=== PATIENT | male | born 1950 | race Caucasian/White ===

== ENCOUNTER 2017-08-02 11:47 | Emergency (ER) | payer MEDICARE ==
[~2017-08-02] VITALS: Ht 172.7 cm; Wt 86.2 kg
[2017-08-02] MEDS ORDERED: TETANUS/DIPHTHERIA TOX ADULT 0.5 ML SYR IM ONE (12:00)
[2017-08-02] MEDS ORDERED: LIDOCAINE HCL 1% LOCAL INJ 20 ML VIAL INJ ONE (12:15)
== END 2017-08-02 12:12 | disposition home or self-care (01) ==
LOC: ER 11:47
DX: S60.455A Superficial foreign body of left ring finger, initial encounter (principal); I10 Essential (primary) hypertension; E78.5 Hyperlipidemia, unspecified; R73.03 Prediabetes; C95.91 Leukemia, unspecified, in remission
CPT/HCPCS: 99283

== ENCOUNTER 2020-08-25 16:44 | Emergency (ER) | payer MEDICARE ==
[~2020-08-25] VITALS: Ht 172.7 cm; Wt 86.2 kg
[2020-08-25 17:21] LABS: BASOPHILS % 0.5 % (0.0-1.0); EOSINOPHILS % 0.7 % (0.0-6.0); HEMATOCRIT 45.2 % (38.2-49.6); HEMOGLOBIN 14.8 g/dL (14.0-18.0); LYMPHOCYTES % 15.8 % (18.0-39.1); MEAN CORPUSCULAR HEMOGLOBIN 28.2 pg (28-32); MEAN CORPUSCULAR HGB CONC 32.7 g/dL (31-35); MEAN CORPUSCULAR VOLUME 86.1 fL (81-99); MONOCYTES # (AUTO) 0.6 (0.2-0.8); NEUTROPHILS # (AUTO) 4.4 (2.1-6.9); NEUTROPHILS % 72.7 % (38.7-80.0); PLATELET COUNT 172 x10e3/uL (140-360); RED BLOOD COUNT 5.25 x10e6/uL (4.3-5.7); RED CELL DISTRIBUTION WIDTH 11.9 % (11.7-14.4)
[2020-08-25 17:33] LABS: INR 0.96; PROTHROMBIN TIME 13.4 seconds (11.9-14.5)
[2020-08-25 17:34] LABS: PARTIAL THROMBOPLASTIN TIME 25.9 seconds (23.8-35.5)
[2020-08-25] MEDS ORDERED: PIOGLITAZONE HC45 MG (17:34)
[2020-08-25] MEDS ORDERED: ATORVASTATIN CA10 MG (17:34)
[2020-08-25] MEDS ORDERED: OLMESARTAN MEDOX5 MG (17:34)
[2020-08-25] MEDS ORDERED: INVOKANA300 MG (17:34)
[2020-08-25] MEDS ORDERED: METFORMIN HCL1000 MG (17:34)
[2020-08-25] MEDS ORDERED: ESCITALOPRAM OX10 MG (17:34)
[2020-08-25] MEDS ORDERED: JANUVIA100 MG (17:34)
[2020-08-25 17:43] LABS: ALBUMIN 3.5 g/dL (3.5-5.0); ALBUMIN/GLOBULIN RATIO 1.1 (0.8-2.0); ANION GAP 18.1 mmol/L (8-16); CALCIUM 8.5 mg/dL (8.4-10.2); CREATININE, SERUM 1.38 mg/dL (0.72-1.25); POTASSIUM 4.1 mmol/L (3.5-5.1)
[2020-08-25 17:49] LABS: CREATINE KINASE MB 0.9 ng/mL (0-5.0)
[2020-08-25] MEDS ORDERED: CEFEPIME 1 GM in SODIUM CHLORIDE 0.9% 50ML 50 ML IV ONE (18:00)
[2020-08-25] MEDS ORDERED: ACETAMINOPHEN 325 MG TAB PO ONE (18:00)
[2020-08-25 20:14] LABS: CLARITY,URINE CLEAR (CLEAR); COLOR,URINE YELLOW (YELLOW); KETONES,URINE 1+ (NEGATIVE); LEUKOCYTE ESTERASE ,URINE NEGATIVE (NEGATIVE); NITRITE,URINE NEGATIVE (NEGATIVE); PROTEIN,URINE DIPSTICK NEGATIVE (NEGATIVE)
[2020-08-25 20:15] LABS: URINE UROBILINOGEN 0.2 mg/dL (0.2 - 1)
[2020-08-25 20:39] LABS: BACTERIA,URINE RARE /HPF; EPITHELIAL CELLS,URINE FEW /LPF; RBC,URINE 0-5 /HPF (0-5); WBC,URINE (MAN) 0-5 /HPF (0-5)
== END 2020-08-25 22:30 | disposition other institution (70) ==
LOC: ER 17:13
DX: U07.1 COVID-19 (principal); R50.9 Fever, unspecified; R55 Syncope and collapse; L02.413 Cutaneous abscess of right upper limb; R94.31 Abnormal electrocardiogram [ECG] [EKG]; E11.65 Type 2 diabetes mellitus with hyperglycemia; I10 Essential (primary) hypertension; E78.5 Hyperlipidemia, unspecified; K21.9 Gastro-esophageal reflux disease without esophagitis; C95.91 Leukemia, unspecified, in remission
CPT/HCPCS: 36415; 70450; 71045; 80053; 81001; 82550; 82553; 83605; 83735; 83880; 84484; 85025; 85610; 85730; 87040; 87086; 93005; 99284; J0692; U0002

== ENCOUNTER → 2023-09-01 | Day surgery (SDC) | payer MEDICARE ==
[2023-08-18 15:17] LABS: BASOPHILS % 0.7 % (0.0-1.0); EOSINOPHILS % 0.6 % (0.0-6.0); HEMATOCRIT 47.9 % (38.2-49.6); HEMOGLOBIN 15.5 g/dL (14.0-18.0); LYMPHOCYTES # (AUTO) 1.8 (1.0-3.2); LYMPHOCYTES % 32.5 % (18.0-39.1); MEAN CORPUSCULAR HEMOGLOBIN 27.7 pg (28-32); MEAN CORPUSCULAR HGB CONC 32.4 g/dL (31-35); MEAN CORPUSCULAR VOLUME 85.7 fL (81-99); MONOCYTES # (AUTO) 0.6 (0.2-0.8); MONOCYTES % 11.6 % (4.4-11.3); NEUTROPHILS % 54.4 % (38.7-80.0); PLATELET COUNT 182 x10e3/uL (140-360); RED BLOOD COUNT 5.59 x10e6/uL (4.3-5.7); RED CELL DISTRIBUTION WIDTH 12.3 % (11.7-14.4); WHITE BLOOD COUNT 5.45 x10e3/uL (4.8-10.8)
[~2023-09-01] MED LIST: ATORVASTATIN CA10 MG; ESCITALOPRAM OX10 MG; GLYCOPYRROLATE INJ 0.2 MG/ML VIAL ONE; INVOKANA300 MG; JANUVIA100 MG; LIDOCAINE HCL 2% LOCAL INJ 5 ML SDV VIAL INJ ONE; METFORMIN HCL1000 MG; OLMESARTAN MEDOX5 MG; PIOGLITAZONE HC45 MG; PROPOFOL IV EMULSION 10 MG/ML 20 ML VIAL ONE
[2023-09-01] MEDS: LACTATED RINGER'S 1,000 ML ONE (14:17)
[2023-09-01 16:35] VITALS: BP 141/71; PULSE 50; RESP 17; TEMP 97.3; O2SAT 98
== END | disposition home or self-care (01) ==
LOC: ENDO 13:58
PROVIDERS: ATTEND Internal Medicine Gastroenterology
DX: K20.90 Esophagitis, unspecified without bleeding (principal); K29.70 Gastritis, unspecified, without bleeding; K31.89 Other diseases of stomach and duodenum; K59.09 Other constipation; Z71.3 Dietary counseling and surveillance; C92.00 Acute myeloblastic leukemia, not having achieved remission; R00.1 Bradycardia, unspecified; I10 Essential (primary) hypertension; Z71.89 Other specified counseling; E11.9 Type 2 diabetes mellitus without complications; E78.5 Hyperlipidemia, unspecified; Z88.6 Allergy status to analgesic agent; Z01.810 Encounter for preprocedural cardiovascular examination; Z01.812 Encounter for preprocedural laboratory examination; Z79.84 Long term (current) use of oral hypoglycemic drugs; Z79.899 Other long term (current) drug therapy; Z68.26 Body mass index [BMI] 26.0-26.9, adult; Z87.891 Personal history of nicotine dependence
CPT/HCPCS: 36415; 43239; 43450; 85025; 93005; J2470; J7121; J2001

== ENCOUNTER 2023-11-07 09:39 | Emergency (ER) | payer MEDICARE ==
[~2023-11-07] VITALS: Ht 172.7 cm; Wt 78.9 kg
[~2023-11-07 09:39] MED LIST changes: -GLYCOPYRROLATE INJ 0.2 MG/ML VIAL ONE; -LIDOCAINE HCL 2% LOCAL INJ 5 ML SDV VIAL INJ ONE; -PROPOFOL IV EMULSION 10 MG/ML 20 ML VIAL ONE
[2023-11-07 09:51] VITALS: TEMP 97.7
[2023-11-07 10:08] LABS: BASOPHILS % 0.3 % (0.0-1.0); EOSINOPHILS # (AUTO) 0.1 (0.0-0.4); EOSINOPHILS % 0.8 % (0.0-6.0); HEMATOCRIT 55.3 % (38.2-49.6); HEMOGLOBIN 17.8 g/dL (14.0-18.0); LYMPHOCYTES # (AUTO) 1.8 (1.0-3.2); MEAN CORPUSCULAR HEMOGLOBIN 27.4 pg (28-32); MEAN CORPUSCULAR HGB CONC 32.2 g/dL (31-35); MEAN CORPUSCULAR VOLUME 85.1 fL (81-99); MONOCYTES # (AUTO) 0.8 (0.2-0.8); NEUTROPHILS # (AUTO) 3.6 (2.1-6.9); NEUTROPHILS % 57.4 % (38.7-80.0); PLATELET COUNT 207 x10e3/uL (140-360); RED CELL DISTRIBUTION WIDTH 14.3 % (11.7-14.4); WHITE BLOOD COUNT 6.32 x10e3/uL (4.8-10.8)
[2023-11-07 10:19] LABS: INR 1.05; PROTHROMBIN TIME 14.2 seconds (11.9-14.5)
[2023-11-07 10:20] LABS: PARTIAL THROMBOPLASTIN TIME 26.8 seconds (23.8-35.5)
[2023-11-07] MEDS: SODIUM CHLORIDE 0.9% 1000ML 1,000 ML IV STA ×2 (10:22)
[2023-11-07] MEDS: ONDANSETRON HCL INJ 2MG/ML 2ML 2 MG/ML VIAL IV STA (10:22)
[2023-11-07 10:26] LABS: INFLUENZAE A&B ANTIGEN (RAPID) NEGATIVE (NEGATIVE); RESPIRATORY SYNC. VIRUS NEGATIVE (NEGATIVE)
[2023-11-07 10:30] LABS: ALBUMIN 3.8 g/dL (3.5-5.0); ALBUMIN/GLOBULIN RATIO 1.1 (0.8-2.0); ANION GAP 18.4 mmol/L (8-16); BILIRUBIN,TOTAL 2.4 mg/dL (0.2-1.2); CREATININE, SERUM 1.45 mg/dL (0.72-1.25); MAGNESIUM 1.6 MG/DL (1.3-2.1); POTASSIUM 4.4 mmol/L (3.5-5.1); TOTAL PROTEIN 7.3 g/dL (6.5-8.1)
[2023-11-07 10:36] LABS: TROPONIN I 0.015 ng/mL (0-0.300)
[2023-11-07 10:40] LABS: CLARITY,URINE HAZY (CLEAR); COLOR,URINE AMBER (YELLOW)
[2023-11-07 10:41] LABS: BILIRUBIN,URINE SMALL (NEGATIVE); GLUCOSE, URINE NEGATIVE (NEGATIVE); KETONES,URINE 2+ (NEGATIVE); LEUKOCYTE ESTERASE ,URINE TRACE (NEGATIVE); NITRITE,URINE POSITIVE (NEGATIVE); PH,URINE 5.5 (5 - 7); PROTEIN,URINE DIPSTICK 1+ (NEGATIVE); URINE UROBILINOGEN 2 mg/dL (0.2 - 1)
[2023-11-07 10:42] LABS: WBC,URINE (MAN) >50 /HPF (0-5)
[2023-11-07 10:43] LABS: BACTERIA,URINE MANY /HPF; EPITHELIAL CELLS,URINE MODERATE /LPF; RBC,URINE 0-5 /HPF (0-5)
[2023-11-07] MEDS ORDERED: IOPAMIDOL 370 MG/ML 100 ML INFUS..BTL INJ ONE (10:55)
[2023-11-07 11:24] LABS: LYMPHOCYTES % 28.3 % (18.0-39.1)
[2023-11-07 12:30] VITALS: PULSE 68; RESP 14; O2SAT 100
[2023-11-07] MEDS ORDERED: PANTOPRAZOLE SO40 MG PO (13:23)
[2023-11-07] MEDS ORDERED: ONDANSETRON ODT4 MG PO (13:23)
[2023-11-07] MEDS ORDERED: CEFDINIR300 MG PO (13:23)
== END 2023-11-07 13:50 | disposition home or self-care (01) ==
LOC: ER 09:44
DX: R11.2 Nausea with vomiting, unspecified (principal); E86.0 Dehydration; R19.7 Diarrhea, unspecified; N28.9 Disorder of kidney and ureter, unspecified; N39.0 Urinary tract infection, site not specified; I10 Essential (primary) hypertension; E11.65 Type 2 diabetes mellitus with hyperglycemia; E78.5 Hyperlipidemia, unspecified; K21.9 Gastro-esophageal reflux disease without esophagitis; M54.9 Dorsalgia, unspecified; G89.29 Other chronic pain; Z11.52 Encounter for screening for COVID-19; Z85.6 Personal history of leukemia
CPT/HCPCS: 36415; 71045; 74177; 80053; 81001; 82550; 83690; 83735; 84484; 85025; 85610; 85730; 87086; 87186; 87400; 87420; 93005; 99284; J0696; J2405; J2470; J7030; Q9967; U0002

== ENCOUNTER → 2023-12-04 | Day surgery (SDC) | payer MEDICARE ==
[2023-12-01 14:13] LABS: BASOPHILS % 0.4 % (0.0-1.0); EOSINOPHILS # (AUTO) 0.1 (0.0-0.4); EOSINOPHILS % 1.2 % (0.0-6.0); HEMATOCRIT 49.9 % (38.2-49.6); HEMOGLOBIN 15.7 g/dL (14.0-18.0); LYMPHOCYTES # (AUTO) 1.5 (1.0-3.2); LYMPHOCYTES % 19.7 % (18.0-39.1); MEAN CORPUSCULAR HEMOGLOBIN 27.4 pg (28-32); MEAN CORPUSCULAR HGB CONC 31.5 g/dL (31-35); MEAN CORPUSCULAR VOLUME 86.9 fL (81-99); MONOCYTES # (AUTO) 0.6 (0.2-0.8); MONOCYTES % 7.2 % (4.4-11.3); NEUTROPHILS # (AUTO) 5.4 (2.1-6.9); NEUTROPHILS % 71.1 % (38.7-80.0); PLATELET COUNT 159 x10e3/uL (140-360); RED BLOOD COUNT 5.74 x10e6/uL (4.3-5.7); RED CELL DISTRIBUTION WIDTH 13.5 % (11.7-14.4); WHITE BLOOD COUNT 7.65 x10e3/uL (4.8-10.8)
[~2023-12-04] MED LIST changes: +CEFDINIR300 MG PO; +ONDANSETRON ODT4 MG PO; +PANTOPRAZOLE SO40 MG PO
[2023-12-04] MEDS: LACTATED RINGER'S 1,000 ML ONE (13:20)
[2023-12-04 15:45] VITALS: TEMP 97
[2023-12-04 16:15] VITALS: BP 120/75; PULSE 52; RESP 18; O2SAT 99
== END | disposition home or self-care (01) ==
LOC: ENDO 12:49
PROVIDERS: ATTEND Internal Medicine Gastroenterology
DX: K22.2 Esophageal obstruction (principal); K31.1 Adult hypertrophic pyloric stenosis; K21.00 Gastro-esophageal reflux disease with esophagitis, without bleeding; K29.50 Unspecified chronic gastritis without bleeding; R13.19 Other dysphagia; R09.A2 Foreign body sensation, throat; I10 Essential (primary) hypertension; E11.9 Type 2 diabetes mellitus without complications; Z79.84 Long term (current) use of oral hypoglycemic drugs; Z79.85 Long-term (current) use of injectable non-insulin antidiabetic drugs; R94.31 Abnormal electrocardiogram [ECG] [EKG]; Z01.810 Encounter for preprocedural cardiovascular examination; Z01.812 Encounter for preprocedural laboratory examination; Z79.899 Other long term (current) drug therapy; Z85.6 Personal history of leukemia; Z85.828 Personal history of other malignant neoplasm of skin
CPT/HCPCS: 36415; 43245; 43450; 85025; 93005; C1726; J2470; J7121